=== PATIENT | male | born 1965 | race Caucasian/White ===

== ENCOUNTER 2016-08-09 16:41 | Emergency (ER) | payer MEDICAID, OTHER ==
[~2016-08-09] VITALS: Ht 190.5 cm; Wt 81.6 kg
[2016-08-09 16:45] VITALS: BP 125/70
== END 2016-08-09 18:56 | disposition left against medical advice (07) ==
LOC: ER 16:52
DX: R51 Headache (principal); Z53.21 Procedure and treatment not carried out due to patient leaving prior to being seen by health care provider